=== PATIENT | male | born 1960 | race Caucasian/White ===

== ENCOUNTER 2019-12-19 20:17 | Emergency (ER) | payer BC ==
[2019-12-19] MEDS ORDERED: ASPIRIN TABLET 325 MG TAB PO ONE (20:21)
[2019-12-19] MEDS ORDERED: ALUM & MAG HYDROX-SIMETHICONE 30 ML, LIDOCAINE VISCOUS 2% 15 ML PO ONE ×2 (20:21)
[2019-12-19] MEDS ORDERED: ALUM & MAG HYDROX-SIMETHICONE 30 ML UD ONE (20:24)
[2019-12-19] MEDS ORDERED: LIDOCAINE HCL 2% (MOUTH-THROAT) 15 ML UD ONE (20:24)
--- NOTE | 2019-12-19 21:00 | RAD ---
EXAM DESCRIPTION: XR CHEST 1 VIEW CLINICAL HISTORY: 6 hours chest pain TECHNIQUE: Single frontal view of the chest is submitted. COMPARISON: 02/02/2012 FINDINGS: Heart: The cardiothoracic silhouette is accentuated by portable technique. Lungs: No focal consolidation. Mediastinum: Unremarkable Pleura: No appreciable effusion. No pneumothorax. Bones: Intact Upper abdomen: Unremarkable IMPRESSION: No acute disease. Electronically signed by: Rom Wen MD 12/19/2019 8:58 PM CDT
--- NOTE | 2019-12-20 | ED.PDOC ---
History of Present Illness - General Chief Complaint: Chest Pain/NV Stated Complaint: chest pain Time Seen by Provider: 12/19/19 20:20 Source: patient Exam Limitations: no limitations - History of Present Illness Initial Comments: The patient is a 59-year-old male presented emergency room secondary to a feeling of mild chest pressure with radiation to his left shoulder down his left arm starting around 8 hours prior to arrival. The worst it was for about an hour after it started to let up suddenly. It started when he was at rest. No fever. No shortness of breath. No central chest pain. No history of any coronary artery disease. The patient reports he had a stress test 3 years ago that looked good. The only movement that seems to exacerbate symptoms little bit is laying over on his left shoulder. Symptoms also seem to be relieved after a GI cocktail. The patient reports that he woke up in the middle of last night with an episode of essentially aspirating. He had had a large supper of [place] food the night before and had very significant reflux. He is not taking anything for reflux. No correlation with exertion. Pain is at a 2 out of 10 up on arrival here. At its worst it was a 5 or 6 earlier in the evening. After the GI cocktail it was relieved. Timing/Duration: other - 8 hours Severity: mild Improving Factors: medication Worsening Factors: other Associated Symptoms: chest pain Allergies/Adverse Reactions: Allergies NO KNOWN ALLERGY Allergy (Verified 12/19/19 20:27) Home Medications: Ambulatory Orders Nitroglycerin [Nitrostat] 0.4 mg SL Q5MIN PRN #1 bottle 12/20/19 Omeprazole 40 mg PO DAILY #30 cap 12/20/19 Review of Systems - Review of Systems Constitutional: States: no symptoms reported EENTM: States: no symptoms reported Respiratory: States: no symptoms reported Cardiology: States: chest pain Gastrointestinal/Abdominal: States: see HPI Genitourinary: States: no symptoms reported Musculoskeletal: States: see HPI Skin: States: no symptoms reported Neurological: States: no symptoms reported Endocrine: States: no symptoms reported All other Systems: No Change from Baseline Past Medical History (General) - Patient Medical History Hx Asthma: No Hx Cardiac Disorders: No Hx Diabetes: No Surgical History: no surgical history - Vaccination History Hx Tetanus, Diphtheria Vaccination: No Hx Influenza Vaccination: No Hx Pneumococcal Vaccination: No - Social History Hx Tobacco Use: Yes Years Tobacco Use: 6 Hx Alcohol Use: No Family Medical History - Family History Mother Family History: Unknown Physical Exam - Physical Exam General Appearance: Alert, Comfortable, No apparent distress Eye Exam: bilateral normal Ears, Nose, Throat: hearing grossly normal, normal ENT inspection, normal pharynx Neck: full range of motion, supple Respiratory: lungs clear, normal breath sounds, no respiratory distress, no accessory muscle use Cardiovascular/Chest: normal peripheral pulses, regular rate, rhythm, no edema Peripheral Pulses: radial,right: 2+, radial,left: 2+ Gastrointestinal/Abdominal: non tender, soft Rectal Exam: deferred Back Exam: no CVA tenderness, no vertebral tenderness Extremity: normal range of motion, non-tender, normal inspection, no pedal edema, normal capillary refill 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, alert, normal mood/affect, oriented x 3 Skin Exam: normal color Comments: Vital Signs - 8 hr 12/19/19 12/19/19 12/19/19 20:25 20:30 21:00 Temperature 97.4 F L Pulse Rate 94 H Pulse Rate [ 94 H 79 88 left] Respiratory 18 22 18 Rate Blood Pressure 178/101 150/89 141/84 [left] O2 Sat by Pulse 98 96 97 Oximetry 12/19/19 12/19/19 12/19/19 21:15 22:00 23:00 Temperature Pulse Rate Pulse Rate [ 80 83 60 left] Respiratory 20 19 Rate Blood Pressure 136/75 143/79 124/76 [left] O2 Sat by Pulse 98 95 Oximetry Progress - Progress Progress: 12/20/19 00:02 The patient is a 59-year-old male presented to the emergency room with chest pain of an uncertain origin. Origin is still not certain. Symptoms did seem to be relieved with a GI cocktail and do seem to be made worse with lying on his left shoulder. EKG does show some abnormalities but how many of these are new is uncertain. The patient was sent with a copy of his EKG to be conveyed to his primary care doctor tomorrow for comparison. With that they can determine if they feel it is worth getting set back up with cardiology for further risk stratification. In the short-term the patient needs to take an aspirin 325 mg daily for the next couple of weeks. I am also going to place him on omeprazole 40 mg daily for the next month. I will also write him for nitroglycerin tablets to keep with him in case of significant recurrence. Chest x-ray and laboratory work are reassuring. Vital signs are stable. The patient is improved. Follow-up with primary care doctor tomorrow. Return to the emergency room for any significant worsening. mark Jaramillo - Results/Orders Results/Orders: Chest x-ray shows no acute pathology. EKG shows borderline left axis deviation. Normal sinus rhythm 87 bpm. 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 No definitive ST segment or T wave changes indicative of acute ischemia. Borderline prolonged QT interval. No previous EKG for comparison. 12/19/19 20:21 Telemetry .CONTINUOUS 12/19/19 20:30 EKG STAT Laboratory Results - last 24 hr 12/19/19 12/19/19 12/19/19 20:28 20:28 20:28 WBC 8.5 RBC 4.94 Hgb 15.9 Hct 45.9 MCV 93.0 MCH 32.2 H MCHC 34.6 RDW 12.7 Plt Count 201 MPV 8.2 Absolute Neuts (auto) 4.80 Absolute Lymphs (auto) 2.70 Absolute Monos (auto) 0.60 Absolute Eos (auto) 0.40 Absolute Basos (auto) 0.10 Neutrophils % 55.8 Lymphocytes % 31.4 Monocytes % 7.3 Eosinophils % 4.6 Basophils % 0.9 PT 10.1 INR 1.02 PTT (SP) 24.1 D-Dimer, Quantitative < 131 L Sodium 138 Potassium 3.8 Chloride 105 Carbon Dioxide 27 Anion Gap 9.8 L BUN 18 Creatinine 1.25 BUN/Creatinine Ratio 14.4 Random Glucose 118 H Serum Osmolality 278.7 Calcium 9.3 Magnesium 2.3 Total Bilirubin 0.6 AST 23 ALT 30 Alkaline Phosphatase 67 Creatine Kinase 146 CK-MB (CK-2) 1.7 CK-MB (CK-2) % Not Reportable Troponin I < 0.02 B-Natriuretic Peptide 11.6 Serum Total Protein 7.6 Albumin 4.6 Globulin 3.0 Albumin/Globulin Ratio 1.5 12/19/19 23:15 WBC RBC Hgb Hct MCV MCH MCHC RDW Plt Count MPV Absolute Neuts (auto) Absolute Lymphs (auto) Absolute Monos (auto) Absolute Eos (auto) Absolute Basos (auto) Neutrophils % Lymphocytes % Monocytes % Eosinophils % Basophils % PT INR PTT (SP) D-Dimer, Quantitative Sodium Potassium Chloride Carbon Dioxide Anion Gap BUN Creatinine BUN/Creatinine Ratio Random Glucose Serum Osmolality Calcium Magnesium Total Bilirubin AST ALT Alkaline Phosphatase Creatine Kinase 125 CK-MB (CK-2) 1.4 CK-MB (CK-2) % Not Reportable Troponin I < 0.02 B-Natriuretic Peptide Serum Total Protein Albumin Globulin Albumin/Globulin Ratio Departure - Departure Clinical Impression: Chest pain Qualifiers: Chest pain type: unspecified Qualified Code(s): R07.9 - Chest pain, unspecified Disposition: Discharge to Home or Self Care Condition: Fair Departure Forms: ED Discharge - Pt. Copy, Patient Portal Self Enrollment Diet: bland diet Activity: increase activity as tolerated Referrals: Steve Penn MD [Primary Care Provider] - 1-2 Days Prescriptions: Nitroglycerin [Nitrostat] 0.4 mg SL Q5MIN PRN #1 bottle PRN Reason: Chest Pain Omeprazole 40 mg PO DAILY #30 cap Home Medications: Ambulatory Orders Nitroglycerin [Nitrostat] 0.4 mg SL Q5MIN PRN #1 bottle 12/20/19 Omeprazole 40 mg PO DAILY #30 cap 12/20/19 Additional Instructions: The patient is a 59-year-old male presented to the emergency room with chest pain of an uncertain origin. Origin is still not certain. Symptoms did seem to be relieved with a GI cocktail and do seem to be made worse with lying on his left shoulder. EKG does show some abnormalities but how many of these are new is uncertain. The patient was sent with a copy of his EKG to be conveyed to his primary care doctor tomorrow for comparison. With that they can determine if they feel it is worth getting set back up with cardiology for further risk stratification. In the short-term the patient needs to take an aspirin 325 mg daily for the next couple of weeks. I am also going to place him on omeprazole 40 mg daily for the next month. I will also write him for nitroglycerin tablets to keep with him in case of significant recurrence. Chest x-ray and laboratory work are reassuring. Vital signs are stable. The patient is improved. Follow-up with primary care doctor tomorrow. Return to the emergency room for any significant worsening.
[2019-12-20 00:11] VITALS: BP 126/75; TEMP 97.8; O2SAT 96
== END 2019-12-20 00:14 | disposition home or self-care (01) ==
LOC: ER 20:17
DX: R07.9 Chest pain, unspecified (principal); I45.10 Unspecified right bundle-branch block; Z87.891 Personal history of nicotine dependence

== ENCOUNTER → 2020-01-04 | Outpatient (CLI) | payer BC | LOC: GMAJ 11:30 | PROVIDERS: ATTEND Family Medicine | DX: Z12.5 Encounter for screening for malignant neoplasm of prostate (principal) ==

== ENCOUNTER → 2020-06-22 | Outpatient (CLI) | payer BC | LOC: GMAJ 12:58 | PROVIDERS: ATTEND Family Medicine | DX: R53.83 Other fatigue (principal) ==